=== PATIENT | male | born 1985 | race African-American/Black ===

== ENCOUNTER 2020-02-18 12:22 | Emergency (ER) | payer MEDICAID ==
[~2020-02-18] VITALS: Ht 190.5 cm; Wt 91.0 kg
[2020-02-18 12:24] VITALS: BP 142/90
== END 2020-02-18 13:09 | disposition home or self-care (01) ==
LOC: ER 12:22
DX: H92.03 Otalgia, bilateral (principal); M26.609 Unspecified temporomandibular joint disorder, unspecified side
CPT/HCPCS: 99281